=== PATIENT | female | born 2000 | race Caucasian/White ===

== ENCOUNTER 2024-01-12 21:39 | Emergency (ER) | payer SELFPAY ==
[~2024-01-12] VITALS: Ht 162.6 cm; Wt 82.2 kg
[2024-01-12 21:55] VITALS: BP 109/65; PULSE 78; RESP 14; TEMP 97.3; O2SAT 99
[2024-01-12 22:35] VITALS: BP 112/66; PULSE 77; RESP 15; TEMP 97.3
[2024-01-12 22:36] VITALS: O2SAT 99
[2024-01-12 22:51] LABS: BASOPHILS # (AUTO) 0.1 K/uL (0.00-0.22); BASOPHILS % (AUTO) 0.7 % (0.0-2.0); EOSINOPHILS # (AUTO) 0.2 K/uL (0-0.4); EOSINOPHILS % (AUTO) 1.6 % (0.0-4.0); HEMOGLOBIN 12.2 g/dL (12.0-16.0); LYMPHOCYTES # (AUTO) 3.3 K/uL (2.5-16.5); MEAN CORPUSCULAR HEMOGLOBIN 29 pg (27-31); MEAN CORPUSCULAR HGB CONC 33 g/dL (33-37); MEAN CORPUSCULAR VOLUME 89.3 fL (80-94); MONOCYTES # (AUTO) 1.3 K/uL (0.8-1.0); MONOCYTES % (AUTO) 9.7 % (1.7-9.3); NEUTROPHILS # (AUTO) 8.4 K/uL (1.8-7.7); PLATELET COUNT (AUTO) 229 K/uL (140-450); RED BLOOD CELL COUNT(AUTO) 4.15 MIL/uL (4.20-5.40); RED CELL DISTRIBUTION WIDTH 13.8 % (11.6-13.7); WHITE BLOOD COUNT (AUTO) 13.3 K/uL (4.8-10.8)
[2024-01-12 22:57] LABS: APPEARANCE,URINE CLEAR (CLEAR); BILIRUBIN,URINE NEGATIVE (NEGATIVE); BLOOD, URINE TRACE-I (NEGATIVE); COLOR,URINE YELLOW (YELLOW); LEUKOCYTE ESTERASE ,URINE 1+ (NEGATIVE); NITRITE, URINE NEGATIVE (NEGATIVE); PROTEIN,URINE NEGATIVE (NEGATIVE); UGLUCOSE NEGATIVE (NEGATIVE); UROBILINOGEN,URINE 0.2 EU/dL (0.2 - 1)
[2024-01-12 23:03] LABS: BACTERIA,URINE 10-30 (MOD) /HPF (None Seen); MUCUS,URINE 1+ /LPF (None Seen); RBC,URINE 0-5 /HPF (0-5); SQUAMOUS EPITHELIAL CELL,UR 0-3 (FEW) /LPF (0-3 (FEW))
[2024-01-12 23:23] LABS: ANION GAP 7.9 (8-16); CALCIUM 9.3 mg/dL (8.5-10.1); CARBON DIOXIDE 28.6 mmol/L (21-32); CREATININE 0.6 mg/dL (0.6-1.3); POTASSIUM 3.5 mmol/L (3.5-5.1)
[2024-01-12 23:26] LABS: ALBUMIN 3.8 g/dL (3.4-5.0); BILIRUBIN,DIRECT 0.2 mg/dL (0.0-0.3); TOTAL BILIRUBIN 0.7 mg/dL (0.0-1.0); TOTAL PROTEIN, SERUM 7.6 g/dL (6.4-8.2)
[2024-01-12] MEDS ORDERED: CEPH-588 PO (23:56)
[2024-01-12] MEDS ORDERED: ACET-10509 PO (23:57)
== END 2024-01-13 00:02 | disposition home or self-care (01) ==
LOC: MED 21:39
DX: O20.0 Threatened abortion (principal); O23.41 Unspecified infection of urinary tract in pregnancy, first trimester; N39.0 Urinary tract infection, site not specified; Z3A.01 Less than 8 weeks gestation of pregnancy; Z79.1 Long term (current) use of non-steroidal anti-inflammatories (NSAID); Z79.2 Long term (current) use of antibiotics
CPT/HCPCS: 36415; 76801; 80048; 80076; 81001; 84702; 85025; 86886; 86900; 86901; 87086; 87186; 99284; Q0092

== ENCOUNTER 2024-03-12 20:19 | Observation (INO) | payer MEDICAID, OTHER ==
[~2024-03-12] VITALS: Ht 165.1 cm; Wt 82.4 kg
[~2024-03-12 20:19] MED LIST: ACET500T99 PO; CEPH-588 PO
[2024-03-12 20:49] VITALS: BP 126/70; PULSE 114; RESP 18; TEMP 102; O2SAT 98
[2024-03-12] MEDS ORDERED: ACETAMINOPHEN 325 MG TAB ONE (20:56)
[2024-03-12] MEDS: ACETAMINOPHEN 325 MG TAB PO ONE (20:59)
[2024-03-12 21:07] VITALS: O2SAT 98
[2024-03-12 21:34] LABS: APPEARANCE,URINE CLEAR (CLEAR); BILIRUBIN,URINE NEGATIVE (NEGATIVE); BLOOD, URINE NEGATIVE (NEGATIVE); COLOR,URINE YELLOW (YELLOW); LEUKOCYTE ESTERASE ,URINE NEGATIVE (NEGATIVE); NITRITE, URINE NEGATIVE (NEGATIVE); PH,URINE 6.5 (5.0-9.0); PROTEIN,URINE NEGATIVE (NEGATIVE); UGLUCOSE NEGATIVE (NEGATIVE); UROBILINOGEN,URINE 0.2 EU/dL (0.2 - 1)
[2024-03-12] MEDS ORDERED: cefTRIAXone 1,000 MG VIAL ONE (21:34)
[2024-03-12 21:41] LABS: BASOPHILS # (AUTO) 0.1 K/uL (0.00-0.22); BASOPHILS % (AUTO) 0.4 % (0.0-2.0); EOSINOPHILS # (AUTO) 0.1 K/uL (0-0.4); EOSINOPHILS % (AUTO) 0.7 % (0.0-4.0); HEMATOCRIT 34.3 % (36-48); HEMOGLOBIN 11.7 g/dL (12.0-16.0); LYMPHOCYTES # (AUTO) 1.7 K/uL (2.5-16.5); LYMPHOCYTES % (AUTO) 9.9 % (20.5-51.1); MEAN CORPUSCULAR HEMOGLOBIN 30 pg (27-31); MEAN CORPUSCULAR HGB CONC 34 g/dL (33-37); MEAN CORPUSCULAR VOLUME 88.8 fL (80-94); MONOCYTES # (AUTO) 1.2 K/uL (0.8-1.0); NEUTROPHILS # (AUTO) 13.7 K/uL (1.8-7.7); PLATELET COUNT (AUTO) 203 K/uL (140-450); RED BLOOD CELL COUNT(AUTO) 3.87 MIL/uL (4.20-5.40); RED CELL DISTRIBUTION WIDTH 13.8 % (11.6-13.7); WHITE BLOOD COUNT (AUTO) 16.7 K/uL (4.8-10.8)
[2024-03-12 21:57] LABS: ANION GAP 10.7 (8-16); CALCIUM 9.1 mg/dL (8.5-10.1); CARBON DIOXIDE 25.6 mmol/L (21-32); CREATININE 0.7 mg/dL (0.6-1.3); POTASSIUM 3.3 mmol/L (3.5-5.1)
[2024-03-12 22:02] LABS: BILIRUBIN,DIRECT 0.1 mg/dL (0.0-0.3); TOTAL BILIRUBIN 0.4 mg/dL (0.0-1.0); TOTAL PROTEIN, SERUM 7.4 g/dL (6.4-8.2)
[2024-03-12 23:25] VITALS: O2SAT 98
[2024-03-13] MEDS: metroNIDAZOLE 500 MG/NS PREMIX 100 ML IV ONE (00:08)
[2024-03-13 01:52] VITALS: O2SAT 98
[2024-03-13] MEDS ORDERED: MORPHINE SULFATE 4 MG/ML SYR IVP PRN (02:30)
[2024-03-13] MEDS ORDERED: MAGNESIUM OXIDE 400 MG TAB PO PRN (02:30)
[2024-03-13] MEDS ORDERED: MAG SULF 2000 MG/WATER PREMIX 50 ML IV PRN (02:30)
[2024-03-13] MEDS ORDERED: ACETAMINOPHEN 325 MG TAB PO PRN (02:30)
[2024-03-13] MEDS ORDERED: ONDANSETRON 4 MG/2 ML VIAL IVP PRN (02:30)
[2024-03-13] MEDS ORDERED: KCL 20 MEQ IN 100 mL PREMIX 200 ML IV PRN (02:30)
[2024-03-13] MEDS ORDERED: HYDROcodone/APAP 5/325 MG 1 TAB TAB PO PRN (02:30)
[2024-03-13 04:50] VITALS: O2SAT 98
[2024-03-13] MEDS ORDERED: metroNIDAZOLE 500 MG/NS PREMIX 100 ML IV SCH (05:00)
[2024-03-13] MEDS: NACL 0.9% 1,000 ML IV SCH (05:02)
[2024-03-13] MEDS: metroNIDAZOLE 500 MG/NS PREMIX 100 ML IV SCH (08:14)
[2024-03-13 08:45] VITALS: BP 101/53; PULSE 89; RESP 20; TEMP 97.9; O2SAT 98
[2024-03-13 09:00] VITALS: PULSE 89; RESP 20; O2SAT 98
[2024-03-13] MEDS: DOCUSATE SODIUM 100 MG GELCAP PO SCH (09:15)
[2024-03-13] MEDS: POTASSIUM CHLORIDE 10 MEQ TABER PO PRN (12:42)
[2024-03-13] MEDS ORDERED: METR-520 PO (13:20)
[2024-03-13 15:34] VITALS: BP 101/53; PULSE 89; RESP 20; TEMP 97.9
[2024-03-13 16:00] VITALS: BP 99/51; PULSE 79; RESP 18; TEMP 97.2; O2SAT 98
[2024-03-13] MEDS ORDERED: MEDS-TO-BEDS MC SCH (21:00)
== END 2024-03-13 17:20 | disposition home or self-care (01) ==
LOC: MED 20:19 → MMU 03-13 02:44
PROVIDERS: ADMIT Hospitalist; ATTEND Hospitalist
DX: O26.892 Other specified pregnancy related conditions, second trimester (principal); N89.8 Other specified noninflammatory disorders of vagina; R10.9 Unspecified abdominal pain; O23.512 Infections of cervix in pregnancy, second trimester; O23.592 Infection of other part of genital tract in pregnancy, second trimester; B96.89 Other specified bacterial agents as the cause of diseases classified elsewhere; Z3A.16 16 weeks gestation of pregnancy; Z79.899 Other long term (current) drug therapy
CPT/HCPCS: 36415; 76805; 80048; 80076; 81003; 83605; 85025; 87040; 87081; 87086; 87186; 87210; 96361; 96365; 96366; 96367; 99285; G0378; J0696; J3490